=== PATIENT | male | born 1955 | race Caucasian/White ===

== ENCOUNTER 2022-09-08 15:32 | Emergency (ER) | payer SELFPAY ==
[2022-09-08] MEDS ORDERED: hydrALAZINE 25 MG Tab PO STA (16:24)
== END 2022-09-08 18:06 ==
LOC: MW.ED 15:32
DX: S00.432A Contusion of left ear, initial encounter (principal); M79.89 Other specified soft tissue disorders; H66.92 Otitis media, unspecified, left ear; I10 Essential (primary) hypertension; F17.210 Nicotine dependence, cigarettes, uncomplicated; Z88.8 Allergy status to other drugs, medicaments and biological substances; W55.22XA Struck by cow, initial encounter
CPT/HCPCS: 73630; 99283; A9270

== ENCOUNTER 2025-06-24 13:15 | Emergency (ER) | payer MEDICAID ==
[2025-06-24 14:15] LABS: GLUCOSE,URINE NEGATIVE (NEGATIVE); OCCULT BLOOD,URINE SMALL (NEGATIVE)
[2025-06-24 14:20] LABS: APPEARANCE,URINE HAZY
[2025-06-24 14:20] LABS: BASOPHILS ABSOLUTE AUTO 0.07 K/uL (0.00-0.20); BASOPHILS PERCENT AUTO 0.9 % (0.0-1.0); EOSINOPHILS ABSOLUTE AUTO 0.21 K/uL (0.00-0.45); EOSINOPHILS PERCENT AUTO 2.7 % (0.0-6.0); IMMATURE GRAN ABSOLUTE AUTO 0.03 K/uL (0.00-0.05); IMMATURE GRAN PERCENT AUTO 0.4 % (0.0-0.4); LYMPHOCYTES ABSOLUTE AUTO 1.21 K/uL (1.00-4.80); LYMPHOCYTES PERCENT AUTO 15.5 % (24.0-44.0); MEAN PLATELET VOLUME 8.6 fL (9.4-12.4); MONOCYTES ABSOLUTE AUTO 0.71 K/uL (0.00-0.80); MONOCYTES PERCENT AUTO 9.1 % (0.0-8.0); NEUTROPHILS ABSOLUTE AUTO 5.59 K/uL (1.80-7.70); NEUTROPHILS PERCENT AUTO 71.4 % (41.0-71.0); NRBC ABSOLUTE 0.00 K/uL (0.00-0.02); NRBC PERCENT 0.0 /100WBC (0.0-0.2); PLATELET COUNT,PLT 220 K/uL (150-400); RED BLOOD CELL COUNT 4.48 M/uL (4.52-5.90); WHITE BLOOD CELL COUNT,WBC 7.82 K/uL (3.9-11.3)
[2025-06-24 14:24] LABS: AMPHETAMINES SCREEN, URINE PRESUMPTIVE POSITIVE (CUTOFF=500); BUPRENORPHINE SCREEN,URINE NEGATIVE (CUTOFF=10); EPITHELIAL CELLS,URINE OCCASIONAL (NONE-FEW); METHADONE SCREEN, URINE NEGATIVE (CUTOFF=200); METHAMPHETAMINES SCREEN, URINE PRESUMPTIVE POSITIVE (CUTOFF=500); OXYCODONE SCREEN,URINE NEGATIVE (CUT0FF=100); PCP SCREEN,URINE NEGATIVE (CUTOFF=25); THC SCREEN,URINE 20 NG/ML NEGATIVE (CUTOFF=50)
[2025-06-24 14:34] LABS: INR 0.95 (0.86-1.11)
[2025-06-24 15:04] LABS: A/G RATIO 1.2 (0.9-1.6); ALANINE AMINOTRANSFERASE,ALT 64.0 IU/L (14-63); ASPARTATE AMNIOTRANSFERASE,AST 94.0 IU/L (15-37); BILIRUBIN TOTAL 1.2 mg/dL (0.2-1.0); BLOOD UREA NITROGEN,BUN 12.0 mg/dL (7.0-18.0); CARBON DIOXIDE,CO2 28.0 mmol/L (21.0-32.0); CHLORIDE,CL 99.0 mmol/L (98-107); CREATININE 0.9 mg/dL (0.8-1.3); EST CRCL DRUG DOSING (CG) 76.0 mL/min; ETHANOL BLOOD MEDICAL 71.0 mg/dL; GLUCOSE RANDOM 92.0 mg/dL (74-106); POTASSIUM,K 4.2 mmol/L (3.5-5.1); PRO B-TYPE NATRIUR PEPT,BNPPRO 132.0 pg/mL (0-125); PROTEIN TOTAL,TP 7.8 g/dL (6.4-8.2); SODIUM,NA 139.0 mmol/L (136-148)
[2025-06-24 15:13] LABS: ESTIMATED GFR 93.0 mL/min (>60)
== END 2025-06-24 15:52 | disposition home or self-care (01) ==
LOC: MW.ED 13:15
DX: I49.3 Ventricular premature depolarization (principal); F15.10 Other stimulant abuse, uncomplicated; F10.10 Alcohol abuse, uncomplicated; R53.1 Weakness; R30.0 Dysuria; Z91.148 Patient's other noncompliance with medication regimen for other reason; Z95.1 Presence of aortocoronary bypass graft; I10 Essential (primary) hypertension; Z79.899 Other long term (current) drug therapy; Z79.82 Long term (current) use of aspirin; Z88.8 Allergy status to other drugs, medicaments and biological substances
CPT/HCPCS: 36415; 71045; 71045-26; 80053; 80305; 80307; 81001; 83690; 83735; 83880; 84484; 85025; 85610; 93005; 93010; 99283; 99285